=== PATIENT | female | born 1930 | race Caucasian/White ===

== ENCOUNTER 2017-11-27 07:09 | Inpatient (IN) | payer OTHER, MEDICARE ==
[~2017-11-27] VITALS: Ht 154.9 cm; Wt 61.2 kg
[~2017-11-27 07:09] MED LIST: ECOTRIN; LISINOPRIL; METOPROLOL PO; metoprolol PO; synthroid
[2017-11-27 07:54] LABS: BASOPHIL (%) 0.1 % (0-1); EOSINOPHIL (%) 0.1 % (0-5); HEMATOCRIT 29.6 % (36.0-46.0); HEMOGLOBIN 10.3 G/DL (11.9-15.5); IMMATURE GRANULOCYTE (%) 1.4 % (0.0-0.7); LYMPHOCYTE (%) 5.5 % (15-42); LYMPHOCYTE COUNT 0.6 K/uL (1.0-2.8); MCH 28.7 PG (29.0-34.0); MCHC 34.8 G/DL (30.0-36.0); MCV 82.5 FL (83-99); MONOCYTE (%) 3.8 % (3-12); MONOCYTE COUNT 0.4 K/uL (0-0.8); NEUTROPHIL (%) 89.1 % (45-76); NEUTROPHIL COUNT 9.5 K/uL (1.8-6.4); RBC DIS.WIDTH-CV 13.1 % (11.8-14.6); RBC DIS.WIDTH-SD 39.3 % (39-53); RED BLOOD COUNT 3.59 M/uL (3.80-5.20); WHITE BLOOD COUNT 10.6 K/uL (4.1-10.2)
[2017-11-27 07:56] LABS: PLATELET COUNT 374 K/uL (156-360)
[2017-11-27 08:00] LABS: INTER. NORMALIZED RATIO 1.1
[2017-11-27 08:02] LABS: PTT 25.5 SEC (25-37)
[2017-11-27 08:05] LABS: CHLORIDE 92 mEq/L (99-109); POTASSIUM 3.6 mEq/L (3.7-5.4); SODIUM 122 mEq/L (136-147)
[2017-11-27 08:06] LABS: GLUCOSE 138 mg/dL (70-99)
[2017-11-27 08:10] LABS: CREATININE 0.8 mg/dL (0.6-1.3); GFR ESTIMATE (CALCULATED) > 59 mL/min/
[2017-11-27 08:15] LABS: UREA NITROGEN (BUN) 25 mg/dL (9-23)
[2017-11-27 08:15] LABS: TROP-I INTERPRETATION NEGATIVE; TROPONIN-I 0.25 ng/mL (0.0-0.30)
[2017-11-27 09:35] LABS: CREATININE 0.8 MG/DL (0.6-1.3); GFR ESTIMATE (CALCULATED) > 59 mL/min/; GLUCOSE 135 mg/dL (70-99); SODIUM 123 MEQ/L (136-147); UREA NITROGEN (BUN) 25 mg/dL (9-23)
[2017-11-27 09:36] LABS: CHLORIDE 90 MEQ/L (99-109)
[2017-11-27] MEDS ORDERED: LOPRESSOR25 MG PO ×2 (10:55→10:56)
[2017-11-27] MEDS ORDERED: SYNTHROID75 MCG PO (11:04)
[2017-11-27] MEDS ORDERED: ECOTRIN325 MG PO (11:04)
[2017-11-27] MEDS ORDERED: MACROBID100 MG PO (11:05)
[2017-11-27] MEDS ORDERED: LASIX20 MG PO (11:05)
[2017-11-27] MEDS ORDERED: SYNTHROID50 MCG PO (11:05)
[2017-11-27 12:51] VITALS: BP 174/81
[2017-11-27 16:59] LABS: TROP-I INTERPRETATION NEGATIVE; TROPONIN-I 0.23 ng/mL (0.0-0.30)
[2017-11-27 20:00] VITALS: BP 135/67
[2017-11-27 23:05] VITALS: BP 133/68
[2017-11-28 03:15] VITALS: BP 142/77
[2017-11-28 05:55] LABS: CHLORIDE 91 MEQ/L (99-109); CREATININE 0.8 MG/DL (0.6-1.3); GFR ESTIMATE (CALCULATED) > 59 mL/min/; IRON 37 MCG/DL (35-150); POTASSIUM 4.1 MEQ/L (3.7-5.4); SODIUM 126 MEQ/L (136-147); UREA NITROGEN (BUN) 22 mg/dL (9-23)
[2017-11-28 06:00] LABS: GLUCOSE 90 mg/dL (70-99)
[2017-11-28 08:00] VITALS: BP 139/73
[2017-11-28 08:30] LABS: THYROTROPIN (TSH) 4.5 MIU/L (0.4-5.5)
[2017-11-28 09:48] LABS: TROP-I INTERPRETATION NEGATIVE; TROPONIN-I 0.24 ng/mL (0.0-0.30)
[2017-11-28 12:00] VITALS: BP 112/56
[2017-11-28 15:13] VITALS: BP 149/65
[2017-11-28 19:59] VITALS: BP 130/60
[2017-11-29 00:05] VITALS: BP 129/63
[2017-11-29 05:00] VITALS: BP 134/63
[2017-11-29 06:05] LABS: HEMATOCRIT 33.8 % (36.0-46.0); HEMOGLOBIN 11.3 G/DL (11.9-15.5); MCH 27.9 PG (29.0-34.0); MCHC 33.4 G/DL (30.0-36.0); MCV 83.5 FL (83-99); PLATELET COUNT 365 K/uL (156-360); RBC DIS.WIDTH-CV 13.4 % (11.8-14.6); RBC DIS.WIDTH-SD 40.3 % (39-53); RED BLOOD COUNT 4.05 M/uL (3.80-5.20); WHITE BLOOD COUNT 5.9 K/uL (4.1-10.2)
[2017-11-29 06:37] LABS: CHLORIDE 96 MEQ/L (99-109); CREATININE 0.8 MG/DL (0.6-1.3); GFR ESTIMATE (CALCULATED) > 59 mL/min/; GLUCOSE 83 mg/dL (70-99); MAGNESIUM 2.2 mg/dl (1.3-2.7); POTASSIUM 3.8 MEQ/L (3.7-5.4); UREA NITROGEN (BUN) 23 mg/dL (9-23)
[2017-11-29 06:40] LABS: SODIUM 136 MEQ/L (136-147)
[2017-11-29 08:00] VITALS: BP 126/60
[2017-11-29 12:29] VITALS: BP 128/68
[2017-11-29] MEDS ORDERED: ASPIRIN EC325 MG PO (13:44)
[2017-11-29] MEDS ORDERED: LEVOTHYROXINE50 MCG PO (13:44)
[2017-11-29] MEDS ORDERED: APRESOLINE50 MG PO (13:44)
[2017-11-29] MEDS ORDERED: CEFTIN250 MG PO (13:44)
[2017-11-29] MEDS ORDERED: LOPRESSOR25 MG PO (13:44)
[2017-11-29] MEDS ORDERED: FUROSEMIDE40 MG PO (13:44)
[2017-11-29] MEDS ORDERED: SPIRONOLACTONE25 MG PO (13:44)
== END 2017-11-29 15:06 | disposition home health service (06) | DRG 292 ==
LOC: EME 07:09 → 4EAST 09:33 → EDOF 09:33 → ENRESERV 09:46 → 4EAST 12:18 → ENPENDDIS 11-29 → 4EAST 11-29 15:06
PROVIDERS: Emergency Medicine; Family Medicine; Internal Medicine
DX: I11.0 Hypertensive heart disease with heart failure (principal); I16.0 Hypertensive urgency; I25.10 Atherosclerotic heart disease of native coronary artery without angina pectoris; R09.02 Hypoxemia; I50.21 Acute systolic (congestive) heart failure; E87.6 Hypokalemia; I27.20 Pulmonary hypertension, unspecified; E87.1 Hypo-osmolality and hyponatremia; E03.9 Hypothyroidism, unspecified; N39.0 Urinary tract infection, site not specified; I08.3 Combined rheumatic disorders of mitral, aortic and tricuspid valves; D50.9 Iron deficiency anemia, unspecified; Z95.5 Presence of coronary angioplasty implant and graft; I25.2 Old myocardial infarction; Z87.891 Personal history of nicotine dependence
CPT/HCPCS: 36415; 71045; 80048; 80048 91; 82728; 83540; 83615; 83735; 83880; 84443; 84484; 85025; 85027; 85046; 85610; 85730; 93005; 93306; 94799; 99281; 99285; J1644; J1652; J1940